=== PATIENT | male | born 1985 ===

== ENCOUNTER 2017-12-02 00:28 | Emergency (ER) | payer OTHER ==
[2017-12-02 00:56] VITALS: BP 141/94; PULSE 89; RESP 17; TEMP 98.8; O2SAT 97
[2017-12-02] MEDS ORDERED: Albuterol-Ipratrop 3 mg / 0.5 (3 ml) UD IH STA (01:26)
--- NOTE | 2017-12-02 01:28 | ED PDOC ---
HPI: CCC, URI, Sore Throat Time Seen by Provider: 12/02/17 01:04 Chief Complaint (Nursing): Flu-like Symptoms Chief Complaint (Provider): cough History Per: Patient History/Exam Limitations: no limitations Onset/Duration Of Symptoms: Days (2 weeks) Current Symptoms Are (Timing): Still Present Location Of Pain: Throat Additional History Per: Patient Additional Complaint(s): 32 y/o male presents with persistent cough x 2 weeks, worsening today. Associated throat pain. Patient states he feels like there is phlegm but he can not get it out. Denies fever, nausea/vomiting, ear pain, nasal congestion/ discharge, chest pain, shortness of breath, palpitations, abdominal pain, recent travel, sick contacts. Patient trying OTC medications with little relief. Past Medical History Reviewed: Historical Data, Nursing Documentation, Vital Signs Vital Signs: Last Vital Signs Temp 98.8 F 12/02/17 00:38 Pulse 89 12/02/17 00:38 Resp 17 12/02/17 00:38 BP 141/94 H 12/02/17 00:38 Pulse Ox 97 12/02/17 01:28 - Medical History PMH: No Chronic Diseases - Surgical History Surgical History: No Surg Hx - Family History Family History: States: No Known Family Hx - Social History Current smoker - smoking cessation education provided: No - Home Medications Home Medications: Ambulatory Orders Medication Instructions Recorded Albuterol HFA [Ventolin HFA 90 1 - 2 puff IH Q4 PRN #1 inh 12/02/17 mcg/actuation (8 g)] - Allergies Allergies/Adverse Reactions: Allergies Allergy/AdvReac Type Severity Reaction Status Date / Time No Known Allergies Allergy Verified 12/02/17 00:56 Review of Systems ROS Statement: Except As Marked, All Systems Reviewed And Found Negative ENT: Positive for: Throat Pain Respiratory: Positive for: Cough Physical Exam - Reviewed Nursing Documentation Reviewed: Yes Vital Signs Reviewed: Yes - Physical Exam Appears: Positive for: Well, Non-toxic, No Acute Distress Head Exam: Positive for: ATRAUMATIC, NORMAL INSPECTION, NORMOCEPHALIC Skin: Positive for: Normal Color Eye Exam: Positive for: Normal appearance ENT: Positive for: Normal ENT Inspection Cardiovascular/Chest: Positive for: Regular Rate, Rhythm Respiratory: Positive for: Normal Breath Sounds Gastrointestinal/Abdominal: Positive for: Normal Exam Back: Positive for: Normal Inspection Extremity: Positive for: Normal ROM Neurologic/Psych: Positive for: Alert, Oriented - ECG O2 Sat by Pulse Oximetry: 97 - Progress ED Course And Treament: flu, strep, chest xray, duoneb Patient educated on findings, discharged with rx Albuterol neb Advised to continue nasal decongestant spray and expectorant OTC meds as directed. Follow up PMD 2-3 days. Return precautions given. Disposition - Clinical Impression Clinical Impression: Bronchitis - Patient ED Disposition Is Patient to be Admitted: No Counseled Patient/Family Regarding: Studies Performed, Diagnosis, Need For Followup, Rx Given - Disposition Referrals: [facility] [Outside] Disposition: Routine/Home Disposition Time: 04:12 Condition: IMPROVED Prescriptions: Albuterol HFA [Ventolin HFA 90 mcg/actuation (8 g)] 1 - 2 puff IH Q4 PRN #1 inh PRN Reason: Wheezing Instructions: Acute Bronchitis (ED) Forms: [email or web address] (Arabic)
[2017-12-02] MEDS ORDERED: Albuterol-Ipratrop 3 mg / 0.5 (3 ml) UD ONE (02:05)
--- NOTE | 2017-12-02 09:29 | RAD ---
HISTORY: cough COMPARISON: No prior. TECHNIQUE: Chest PA and lateral FINDINGS: LUNGS: No active pulmonary disease. PLEURA: No significant pleural effusion identified. No pneumothorax apparent. CARDIOVASCULAR: Normal. OSSEOUS STRUCTURES: No significant abnormalities. VISUALIZED UPPER ABDOMEN: Normal. OTHER FINDINGS: None. IMPRESSION: No active disease.
== END 2017-12-02 04:42 | disposition home or self-care (01) ==
LOC: H.ER 00:28
DX: J40 Bronchitis, not specified as acute or chronic (principal)